=== PATIENT | male | born 1940 | race American Indian/Alaskan Native ===

== ENCOUNTER 2017-02-08 06:25 | Day surgery (SDC) | payer MEDICARE ==
[2017-02-08] MEDS ORDERED: ECOTRIN PO ONE (06:40)
[2017-02-08] MEDS ORDERED: NACL 0.9% 500 ML 500 ML IV SCH (07:00)
[2017-02-08 07:32] LABS: BUN/Creatinine Ratio 10.35; Calcium 9.1 mg/dL (8.4-10.2); Chloride 89.8 mmol/L (98-107); Potassium 3.7 mmol/L (3.6-5.0)
[2017-02-08 07:35] LABS: INR 0.91 (0.87-1.13)
[2017-02-08 08:06] LABS: Hematocrit 30.5 % (35.5-45.6); Hemoglobin 10.3 gm/dl (11.8-15.2); Mean Corpuscular HGB Conc 34 % (32-34); Mean Corpuscular Hemoglobin 29 pg (28-32); Mean Corpuscular Volume 87 fl (84-94); Platelet Count 382 K/mm3 (140-440); Red Blood Count 3.51 M/mm3 (3.65-5.03); Red Cell Distribution Width 15.5 % (13.2-15.2); White Blood Count 7.4 K/mm3 (4.5-11.0)
[2017-02-08] MEDS ORDERED: D50W (25GM) Syringe IV ONE ×2 (08:40→08:45)
[2017-02-08] MEDS ORDERED: SUBLIMAZE ONE (09:37)
[2017-02-08] MEDS ORDERED: VERSED ONE (09:37)
[2017-02-08] MEDS ORDERED: HEPARIN/NS 5000 UNIT/500ML(CATH LAB) 1,000 ML IR ONE (09:37)
[2017-02-08] MEDS ORDERED: NITROGLYCERIN SYRINGE 0 ML ONE (09:38)
[2017-02-08] MEDS ORDERED: XYLOCAINE 2% INFILTRATI ONE (09:38)
[2017-02-08 09:44] LABS: Anisocytosis 1+; Basophils % (Manual) 0 % (0.0-1.8); Blastocytes % (Manual) 0 %; Elliptocytes Few; Ovalocytes 1+; Schistocytes Rare; Tear Drop Cells Rare
[2017-02-08 09:45] LABS: Diff Status Complete; Helmet Cells Rare
[2017-02-08] MEDS ORDERED: NITROSTAT SL ONE (10:05)
[2017-02-08] MEDS ORDERED: HEPARIN/NS 5000 UNIT/500ML(CATH LAB) 500 ML IR ONE (10:09)
--- NOTE | 2017-02-08 10:59 | Discharge Summary ---
Short Stay Discharge Plan Activity: advance as tolerated Weight Bearing Status: Partial Weight Bearing Diet: low fat, low cholesterol, low salt, diabetic Wound: keep clean and dry Special Instructions: no heavy lifting (3 days), hold Metformin (48 hrs) Additional Instructions: REPORT FOR YOUR ROUTINE DIALYSIS TOMORROW AM. Follow up with: CARLOS FELIX MD [Primary Care Provider] - 7 Days YOSVANY BURGESS MD [Staff Physician] - 7 Days
--- NOTE | 2017-02-08 11:20 | Cardiac Catherization Report ---
CARDIAC CATHETERIZATION REASON FOR PROCEDURE: Shortness of breath and coronary artery disease. The patient has history of coronary artery disease and severe calcification of the coronary vessels. Three years ago, he underwent angioplasty of severely calcified mid right coronary artery. At that time, a stent could not be deployed due to severe calcification and noncompliance of the vessel. Recently, he was hospitalized at [facility] where they document an elevation of the troponin levels, for which he was initially placed on medical therapy. As outpatient, he has continued to have shortness of breath, prompting recommendation for cardiac catheterization. In addition, he has end-stage renal disease on hemodialysis, on Saturdays, Tuesdays, and . PROCEDURES PERFORMED: 1. Right heart catheterization. 2. Left heart catheterization and left ventricle angiography. 3. Selective left and right coronary angiography. The patient was prepped and draped in a sterile fashion after informed consent. Right femoral artery was entered using the Seldinger technique followed by placement of a 6-Serbian sheath in the artery, and similarly an 8-Serbian sheath in the vein. A [place]-Antonio catheter was then advanced to the pulmonary artery position. A pigtail catheter was similarly advanced into the left ventricle. Cardiac output was measured using thermodilution method. Simultaneous right and left heart filling pressures were measured. Following this, the [place]-Antonio catheter was then withdrawn, and right heart pressures were also recorded on pullback. Left ventricular angiography was then performed using hand injection. Following this, the pigtail catheter was withdrawn across the aortic valve and transaortic pressure gradient was measured. We then performed selective left and right coronary angiography using a #4 left Chava and #4 right Chava catheter. The catheters were then removed, hemostasis achieved over both arterial and venous sites using manual compression. The patient was returned to the postprocedure unit in stable condition. There were no complications. FINDINGS: HEMODYNAMICS: Mean right atrial pressure was 6. Right ventricular pressure 30/8. Pulmonary artery pressure was 30/15. The mean pulmonary artery wedge pressure was 8. Left ventricular end-diastolic pressure was 10. Ascending aortic pressure was 124/64. There was no significant pressure gradient on pullback across the aortic valve. The cardiac output as measured by thermodilution was 5.7 liters per minute. CORONARY ANGIOGRAPHY: There was severe diffuse coronary calcification, which involved both left and right coronary systems. The left main coronary artery contained diffuse mild atherosclerosis. There was diffuse mild atherosclerosis of the proximal and mid segments of the LAD. Following this, the distal LAD contained diffuse moderate atherosclerosis. The LAD was a large vessel that wrapped around the apex of the left ventricle, providing perfusion to a significant portion of the inferior wall. Similarly, the diagonal branches of the LAD contained diffuse mild atherosclerosis. No significant focal obstructive lesions were noted in the LAD system. The circumflex artery was also severely calcified. There was mild ostial stenosis of the circumflex, with less than 30% to 50% luminal narrowing. Following this, there was diffuse mild atherosclerosis of the rest of the circumflex and obtuse marginal branches. The right coronary artery was dominant. This vessel was heavily calcified in its proximal and mid segments. There was diffuse moderate atherosclerosis and diffuse moderate narrowing of the vessel within this long calcified segment. No severe obstructive lesions were identified on multiple angiographic views of the right coronary artery. Left ventricular systolic function was well preserved, overall ejection fraction was 60%. There was [id number] hypokinesis of a small segment of the basal inferior wall. CONCLUSION: 1. Normal right and left heart filling pressures, borderline pulmonary hypertension is noted. 2. Severe diffuse 3-vessel coronary calcification. 3. Diffuse mild to moderate 3-vessel atherosclerosis with no severe obstructive lesions noted. 4. No evidence of severe right coronary artery restenosis following the previous angioplasty procedure. 5. Well preserved left ventricular systolic function, ejection fraction 60%. RECOMMENDATION: Aggressive risk factor modification and medical therapy. [facility]# [id number] ENMA/NTS
[2017-02-08 15:01] VITALS: BP 162/77
== END 2017-02-08 17:13 | disposition home or self-care (01) ==
LOC: CATHLABREC 06:25
PROVIDERS: ATTEND Internal Medicine Cardiovascular Disease
DX: I25.10 Atherosclerotic heart disease of native coronary artery without angina pectoris (principal); I12.0 Hypertensive chronic kidney disease with stage 5 chronic kidney disease or end stage renal disease; N18.6 End stage renal disease; F10.21 Alcohol dependence, in remission; E11.22 Type 2 diabetes mellitus with diabetic chronic kidney disease; Z98.49 Cataract extraction status, unspecified eye; Z98.890 Other specified postprocedural states; Z87.891 Personal history of nicotine dependence; Z95.5 Presence of coronary angioplasty implant and graft; Z99.2 Dependence on renal dialysis; Z82.49 Family history of ischemic heart disease and other diseases of the circulatory system
CPT/HCPCS: 36415; 80048; 82962; 85007; 85025; 85610; 85730; 93005; 93010; 93460; 96374; C1894; J1644; J2250; J3010; J7040; Q9967